=== PATIENT | female | born 1995 | race Caucasian/White ===

== ENCOUNTER 2016-06-23 00:42 | Emergency (ER) | payer BC ==
[~2016-06-23] VITALS: Ht 149.9 cm; Wt 65.8 kg
[~2016-06-23 00:42] MED LIST: CLON0.5T3 PO; GABA-113 PO; MIRT15TA2 PO; VENL75CA PO
[2016-06-23 00:44] VITALS: TEMP 36.8; Ht 149.9 cm; Wt 65.8 kg
--- NOTE | 2016-06-23 01:02 | EMERGENCY ROOM VISIT NOTE ---
History Report prepared by Sonya: Monse Mcnulty Under the Supervision of: Dr. Yossi Scott M.D. First contact with patient: 00:48 Chief Complaint: MENTAL HEALTH EVALUATION Stated Complaint: HEARING AND SEEING STUFF,BLACKOUT History of Present Illness The patient is a 21 year old female who presents to the Emergency Room with complaints of worsening auditory and visual hallucinations that began one week ago. The patient states that she has a history of hallucinations. She states that for the past week she has been seeing scary shadows and hearing things. The patient states that her symptoms continued to worsen this evening. She reports medication compliance. The patient denies any homicidal ideation. She reports thoughts of wanting to self-mutilate, but denies any suicidal ideation. The patient denies any drug or alcohol use. The patient states that her last psychiatric admission was within the last two months. She denies any physical or mental abuse from anyone. Source of History: patient Onset: one week ago Position: other (global) Quality: other (auditory and visual hallucinations) Timing: worsening Note: Associated Symptoms: thoughts of wanting to self-mutilate Review of Systems See HPI for pertinent positives & negatives. A total of 10 systems reviewed and were otherwise negative. Past Medical & Surgical Medical Problems: (1) Anxiety (2) Auditory hallucinations (3) Depression (4) Drug overdose, intentional (5) Schizoaffective disorder (6) UTI (urinary tract infection) Family History FH: cancer Hypertension Social History Smoking Status: Never Smoker Alcohol Use: occasionally Drug Use: none Marital Status: single Occupation Status: [employer] student Current/Historical Medications Scheduled Duloxetine HCl (Duloxetine HCl), 60 MG PO QAM Haloperidol (Haldol), 10 MG PO HS Prazosin HCl (Prazosin HCl), 1 MG PO HS Quetiapine Fumarate (Quetiapine Fumarate), 400 MG PO HS Quetiapine Fumarate (Seroquel), 50 MG PO QAM Allergies Uncoded Allergies: raw fruits and vegetables-hives (Allergy, Intermediate, hives, 02/21/15) cooked fruit/vegetables OK Physical Exam Vital Signs Date Time Temp Pulse Resp B/P Pulse Ox O2 Delivery O2 Flow Rate FiO2 06/23/16 02:18 81 18 78/45 97 Room Air 06/23/16 00:44 36.8 93 20 118/87 97 Room Air Physical Exam GENERAL: Patient is well appearing and in no acute distress. HEENT: No acute trauma, normocephalic atraumatic, mucous membranes moist, no nasal congestion, no scleral icterus. NECK: No stridor, no adenopathy, no meningismus, trachea is midline. LUNGS: No dyspnea. Clear to auscultation and equal bilaterally. No wheeze, no rhonchi. HEART: Regular rate and rhythm. No murmurs, rubs, gallops appreciated. ABDOMEN: Soft, nontender, bowel sounds positive, no masses appreciated, no peritonitis. BACK: No midline tenderness, no CVA tenderness EXTREMITIES: Normal motion all extremities, no cyanosis, no edema. NEUROLOGIC: Alert and oriented, no acute motor or sensory deficits, no focal weakness, cranial nerves grossly intact. SKIN: No rash, no jaundice, no diaphoresis. PSYCH: admits auditory and visual hallucinations with intent to harm self, though denies plan to kill self. Denies homicidal ideation. Medical Decision & Procedures Laboratory Results 06/23/16 00:57 Red Blood Count 4.89, Mean Corpuscular Volume 87.1, Mean Corpuscular Hemoglobin 31.3, Mean Corpuscular Hemoglobin Concent 35.9, Mean Platelet Volume 9.2, Neutrophils (%) (Auto) 60.2, Lymphocytes (%) (Auto) 30.4, Monocytes (%) (Auto) 6.2, Eosinophils (%) (Auto) 3.0, Basophils (%) (Auto) 0.1, Neutrophils # (Auto) 4.39, Lymphocytes # (Auto) 2.22, Monocytes # (Auto) 0.45, Eosinophils # (Auto) 0.22, Basophils # (Auto) 0.01 06/23/16 00:57 Test 06/23/16 00:57 06/23/16 01:00 White Blood Count 7.30 K/uL (4.8-10.8) Red Blood Count 4.89 M/uL (4.2-5.4) Hemoglobin 15.3 g/dL (12.0-16.0) Hematocrit 42.6 % (37-47) Mean Corpuscular Volume 87.1 fL (80-100) Mean Corpuscular Hemoglobin 31.3 pg (25-34) Mean Corpuscular Hemoglobin Concent 35.9 g/dl (32-36) Platelet Count 294 K/uL (130-400) Mean Platelet Volume 9.2 fL (7.4-10.4) Neutrophils (%) (Auto) 60.2 % Lymphocytes (%) (Auto) 30.4 % Monocytes (%) (Auto) 6.2 % Eosinophils (%) (Auto) 3.0 % Basophils (%) (Auto) 0.1 % Neutrophils # (Auto) 4.39 K/uL (1.4-6.5) Lymphocytes # (Auto) 2.22 K/uL (1.2-3.4) Monocytes # (Auto) 0.45 K/uL (0.11-0.59) Eosinophils # (Auto) 0.22 K/uL (0-0.5) Basophils # (Auto) 0.01 K/uL (0-0.2) RDW Standard Deviation 38.3 fL (36.4-46.3) RDW Coefficient of Variation 12.0 % (11.5-14.5) Immature Granulocyte % (Auto) 0.1 % Immature Granulocyte # (Auto) 0.01 K/uL (0.00-0.02) Anion Gap 9.0 mmol/L (3-11) Est Creatinine Clear Calc Drug Dose 95.3 ml/min Estimated GFR () 127.9 Estimated GFR (Non- 110.4 BUN/Creatinine Ratio 8.4 (10-20) Calcium Level 9.0 mg/dl (8.5-10.1) Total Bilirubin 0.4 mg/dl (0.2-1) Aspartate Amino Transf (AST/SGOT) 8 U/L (15-37) Alanine Aminotransferase (ALT/SGPT) 17 U/L (12-78) Alkaline Phosphatase 90 U/L (45-117) Total Protein 7.5 gm/dl (6.4-8.2) Albumin 4.2 gm/dl (3.4-5.0) Globulin 3.3 gm/dl (2.5-4.0) Albumin/Globulin Ratio 1.3 (0.9-2) Thyroid Stimulating Hormone (TSH) 3.660 uIu/ml (0.300-4.500) Salicylates Level < 1.7 mg/dl (2.8-20) Acetaminophen Level < 2 ug/ml (10-30) Ethyl Alcohol mg/dL < 3.0 mg/dl (0-3) Urine Color YELLOW Urine Appearance CLEAR (CLEAR) Urine pH 7.0 (4.5-7.5) Urine Specific [place] 1.011 (1.000-1.030) Urine Protein NEG (NEG) Urine Glucose (UA) NEG (NEG) Urine Ketones NEG (NEG) Urine Occult Blood NEG (NEG) Urine Nitrite NEG (NEG) Urine Bilirubin NEG (NEG) Urine Urobilinogen NEG (NEG) Urine Leukocyte Esterase TRACE (NEG) Urine WBC (Auto) 1-5 /hpf (0-5) Urine RBC (Auto) 0-4 /hpf (0-4) Urine Hyaline Casts (Auto) 1-5 /lpf (0-5) Urine Epithelial Cells (Auto) >30 /lpf (0-5) Urine Bacteria (Auto) NEG (NEG) Urine Test NEG (NEG) Urine Opiates Screen NEG (NEG) Urine Methadone, Qualitative NEG (NEG) Urine Barbiturates NEG (NEG) Urine Phencyclidine (PCP) Level NEG (NEG) Ur Amphetamine/Methamphetamine NEG (NEG) MDMA (Ecstasy) Screen NEG (NEG) Urine Benzodiazepines Screen NEG (NEG) Urine Cocaine Metabolite NEG (NEG) Urine Marijuana (THC) NEG (NEG) Laboratory results as reviewed by me. ED Course 0053: The patient was evaluated in room A6. A complete history and physical exam was performed. 0146: The patient is medically clear for further psychiatric care. 0302: The patient was evaluated by [facility]. A bed search is underway. 0400: The patient was accepted at the [facility]. [facility] will arrive for transport later this morning. Medical Decision Differential: Mood Disorder, Overdose, Infectious, Electrolyte Abnormality, Cardiac, Hepatic, Endocrine, Toxicologic, Neurologic, amongst other pathologies entertained. 21 yr old female with long history of mental health issues arrives with complaint of increasing hallucinations and feeling she may seriously harm herself. Denies suicidal plan but notes she is concerned it could get to that. She has no medical issues otherwise. Did take her meds prior to arrival so after initial evaluation she is sleepy and falling asleep. I feel that BP reflex her being tired, meds on board and that she is young healthy patient. She is not septic and is medically clear. Accepted to [facility] and will be transferred there in the morning. Impression Primary Impression: Auditory hallucinations Additional Impressions: Visual hallucinations Thoughts of self harm Scribe Attestation The scribe's documentation has been prepared under my direction and personally reviewed by me in its entirety. I confirm that the note above accurately reflects all work, treatment, procedures, and medical decision making performed by me. Departure Information Dispostion Mental Health Acute Care Referrals No Doctor, Assigned (PCP) Problem Qualifiers
[2016-06-23 01:10] LABS: BASO % 0.1 %; BASO ABS # 0.01 K/uL (0-0.2); COMPLETE YES; HEMATOCRIT 42.6 % (37-47); IG% 0.1 %; LYMPH % 30.4 %; LYMPH ABS # 2.22 K/uL (1.2-3.4); MEAN CELL VOLUME 87.1 fL (80-100); MEAN CORPUSCULAR HEMOGLOBIN 31.3 pg (25-34); MEAN CORPUSCULAR HGB CONC 35.9 g/dl (32-36); MEAN PLATELET VOLUME 9.2 fL (7.4-10.4); MONO % 6.2 %; NEUT % 60.2 %; PLATELET COUNT 294 K/uL (130-400); RED BLOOD COUNT 4.89 M/uL (4.2-5.4)
[2016-06-23 01:13] LABS: PREG INTERNAL NEGATIVE QC NEG CLEAR BACKGROUND; PREG INTERNAL POSITIVE QC POS CONTROL LINE
[2016-06-23 01:14] LABS: URINE APPEARANCE CLEAR (CLEAR); URINE BILIRUBIN NEG (NEG); URINE COLOR YELLOW; URINE EPITHELIAL CELL AUTO >30 /lpf (0-5); URINE NITRITE NEG (NEG); URINE SPECIFIC GRAVITY 1.011 (1.000-1.030); UROBILINOGEN NEG (NEG); ZZUR CULT IF INDIC CLEAN CATCH NO
[2016-06-23 01:18] LABS: MANUAL MICROSCOPIC REQUIRED? NO; REVIEW REQ? NO
[2016-06-23 01:27] LABS: BUN/CREATININE RATIO 8.4 (10-20); CREATININE 0.77 mg/dl (0.60-1.20); POTASSIUM 3.8 mmol/L (3.5-5.1)
[2016-06-23 01:29] LABS: BENZODIAZEPINE, URINE NEG (NEG); COCAINE,URINE NEG (NEG); PHENCYCLIDINE, URINE NEG (NEG)
[2016-06-23 01:37] LABS: ACETAMINOPHEN < 2 ug/ml (10-30)
[2016-06-23 01:38] LABS: ALB/GLOB RATIO 1.3 (0.9-2); THYROID STIMULATING HORMONE 3.66 uIu/ml (0.300-4.500)
[2016-06-23] MEDS ORDERED: CYM60 PO (01:55)
[2016-06-23] MEDS ORDERED: PRZ1 PO (01:55)
[2016-06-23] MEDS ORDERED: QUET5TAB PO (01:57)
[2016-06-23] MEDS ORDERED: QUET1TAB20 PO (01:57)
[2016-06-23] MEDS ORDERED: HALO10TA17 PO (01:58)
[2016-06-23 08:07] VITALS: BP 90/46; PULSE 125; O2SAT 98
== END 2016-06-23 08:08 ==
LOC: C.EDB 00:43 → C.EDA 08:08
DX: R44.0 Auditory hallucinations (principal); R44.1 Visual hallucinations; F32.9 Major depressive disorder, single episode, unspecified; F25.9 Schizoaffective disorder, unspecified; F41.9 Anxiety disorder, unspecified; Z87.440 Personal history of urinary (tract) infections; Z79.899 Other long term (current) drug therapy; Z91.018 Allergy to other foods; Z80.9 Family history of malignant neoplasm, unspecified; Z82.49 Family history of ischemic heart disease and other diseases of the circulatory system